=== PATIENT | female | born 1975 | race Caucasian/White ===

== ENCOUNTER 2019-02-03 18:14 | Emergency (ER) | payer SELFPAY ==
[~2019-02-03] VITALS: Ht 172.7 cm; Wt 70.7 kg
[~2019-02-03 18:14] MED LIST: ACET500C5 PO; CEPH-443 PO
[2019-02-03 18:24] VITALS: BP 115/68; PULSE 84; RESP 16; Ht 172.7 cm; Wt 70.7 kg
--- NOTE | 2019-02-03 20:48 | ERD ---
ER Documentation Chief Complaint Chief Complaint VB w/ pelvic pain today, 5 weeks HPI Patient is a 43-year-old female, no past medical history, presents the ER for concerns of vaginal bleeding and pelvic pain which started today. Patient states she is approximately 5 weeks . Her last menstrual period was on December 16, 2018. Patient is G1, P0. Patient has not established care with an [facility]ORAIL OPERATOR yet. Patient states she was at home when she felt pelvic pain and then passed a large amount of "tissue". Patient states "I know I am having a miscarriage." Patient states she felt "tissue" past however she did not want to look at it given that "I do not like seeing blood. Patient states that time the bleeding has slowed down. Patient denies any lightheadedness or dizziness. ROS All systems reviewed and are negative except as per history of present illness. Medications Home Meds Active Scripts Cephalexin* (Keflex*) 500 Mg Capsule, 500 MG PO BID for 7 Days, CAP Prov:KATHRYN MEDRANO PA-C 02/03/19 Acetaminophen* (Tylophen*) 500 Mg Capsule, 1 CAP PO Q6H PRN for PAIN AND OR ELEVATED TEMP, #20 CAP Prov:KATHRYN MEDRANO PA-C 02/03/19 Allergies Allergies: Coded Allergies: No Known Allergy (Unverified , 02/03/19) PMhx/Soc Anesthesia Reaction: No Hx Neurological Disorder: No Hx Respiratory Disorders: No Hx Cardiac Disorders: No Hx Psychiatric Problems: No Hx Miscellaneous Medical Probl: No Hx Alcohol Use: No Hx Substance Use: No Hx Tobacco Use: Yes Smoking Status: Current every day smoker FmHx Family History: No diabetes Physical Exam Vitals Vital Signs Date Temp Pulse Resp B/P (MAP) Pulse Ox O2 O2 Flow FiO2 Time Delivery Rate 02/03/19 97.1 84 16 115/68 99 18:24 (84) Physical Exam GENERAL: Well-developed, well-nourished []. Appears in no acute distress. HEAD: Normocephalic, atraumatic. EYES: Pupils are equally reactive bilaterally. EOMs grossly intact. No conjunctival erythema. ENT: Moist mucous membranes. No uvula deviation. No kissing tonsils. NECK: Supple. No meningismus. Normal range of motion of the neck. LUNG: Clear to auscultation bilaterally. No rhonchi, wheezing, rales or coarse breath sounds. HEART: Regular rate and rhythm. No murmurs, rubs or gallops. ABDOMEN: soft, nondistended. Tender to palpation in the suprapubic region. Positive bowel sounds in all four quadrants. No rebound tenderness, no guarding. (-) McBurney's point tenderness. No CVA tenderness. BACK: No midline tenderness. EXTREMITIES: Equal pulses bilaterally. No peripheral clubbing, cyanosis or edema. No unilateral leg swelling. NEUROLOGIC: Alert and oriented. Moving all four extremities without any difficulty. Normal speech. Steady gait. SKIN: Normal color. Warm and dry. No rashes or lesions. Result Diagram: 02/03/191942 Results 24 hrs Laboratory Tests Test 02/03/19 19:43 02/03/19 20:00 White Blood Count 9.2 10^3/ul Red Blood Count 3.67 10^6/ul Hemoglobin 10.6 g/dl Hematocrit 32.7 % Mean Corpuscular Volume 89.1 fl Mean Corpuscular Hemoglobin 28.9 pg Mean Corpuscular Hemoglobin Concent 32.4 g/dl Red Cell Distribution Width 12.8 % Platelet Count 268 10^3/UL Mean Platelet Volume 9.2 fl Immature Granulocytes % 0.200 % Neutrophils % 64.8 % Lymphocytes % 26.7 % Monocytes % 8.0 % Eosinophils % 0.0 % Basophils % 0.3 % Nucleated Red Blood Cells % 0.0 /100WBC Immature Granulocytes # 0.020 10^3/ul Neutrophils # 6.0 10^3/ul Lymphocytes # 2.5 10^3/ul Monocytes # 0.7 10^3/ul Eosinophils # 0.0 10^3/ul Basophils # 0.0 10^3/ul Nucleated Red Blood Cells # 0.0 10^3/ul Beta HCG, Quantitative 5116.7 mIU/ml Urine Color AZUCENA Urine Clarity CLOUDY Urine pH 6.0 Urine Specific [place] 1.028 Urine Ketones NEGATIVE mg/dL Urine Nitrite NEGATIVE mg/dL Urine Bilirubin NEGATIVE mg/dL Urine Urobilinogen 1+ mg/dL Urine Leukocyte Esterase 1+ Jozef/ul Urine Microscopic RBC > 182 /HPF Urine Microscopic WBC 18 /HPF Urine Squamous Epithelial Cells MODERATE /HPF Urine Mucus FEW /HPF Urine Hemoglobin 3+ mg/dL Urine Glucose NEGATIVE mg/dL Urine Total Protein 1+ mg/dl Procedures/MDM ED COURSE: The patient was stable throughout ED course. I kept the patient and/or family informed of laboratory and diagnostic imaging results throughout the ED course. DIAGNOSTIC IMAGING: Read by radiologist. Patient: RACHEL HERNANDEZ : 1975 Age: 43 Sex: F MR #: [id number] DOS: 02/03/19 1837 Ordering MD: KATHRYN MEDRANO PA-C Location: [facility] Room/Bed: PROCEDURE: US OB. CLINICAL INDICATION: Vaginal bleeding. TECHNIQUE: Transabdominal and transvaginal sonographic evaluation of the pelvis using heaton scale and color Doppler imaging was performed. COMPARISON: None available. FINDINGS: No discrete intrauterine is identified. There is fluid within the lower uterine segment adjacent to vascular, echogenic contents also within the endometrial canal. The endometrium is thickened and heterogeneous measuring 13 mm. Uterus: 7.6 x 4 x 5 cm. Retroflexed. Right ovary: Not identified. Left ovary: Not identified. IMPRESSION: 1. Heterogeneous endometrial contents including fluid and echogenic components demonstrating flow with no discrete intrauterine identified. These findings are nonspecific and correlation with serial beta HCG is well as short interval follow-up ultrasound is recommended. RPTAT: [facility] Physician Sergio Date Time Electronically viewed and signed by Physician Sergio on 02/03/2019 19:57 LP/ CC: KATHRYN MEDRANO PA-C [id number] MEDICAL DECISION MAKING: This is a 43-year-old female, G1, P0, approximately 5 weeks , presents the ER for concerns of pelvic pain and vaginal bleeding which started today. Patient states she passed a large amount of tissue prior to coming to the ER.. Vital signs were reviewed. Patient was afebrile. Patient was hemodynamically stable. Quantitative b-HCG was 5116. Patient's blood type is noted to be A+, no indication for RhoGam. CBC showed no evidence of systemic infection or severe anemia. Patient is currently taking vitamins and was advised to continue taking vitamins. UA did show 1+ leukocyte esterase. Pelvic US showed . Heterogeneous endometrial contents including fluid and echogenic components demonstrating flow with no discrete intrauterine identified. These findings are nonspecific and correlation with serial beta HCG is well as short interval follow-up ultrasound is recommended. At this time, patient's findings are most consistent with spontaneous and UTI. Patient was advised she will need to repeat her beta hCG to assure downtrending. Patient advised return to the ER for any new or worsening symptoms. Low suspicion for ectopic , ruptured ectopic , molar , subchorionic hematoma, incomplete , complete , missed , placental abruption, placental previa, vasa previa, uterine rupture, anembyronic . PRESCRIPTIONS: Tylenol, Keflex DISCHARGE: At this time, patient is stable for discharge and outpatient management. I had a conversation at length with the patient about the concerns of vaginal bleeding during the 1st trimester of . Patient and/or family understands that her vaginal bleeding can be a normal finding or a sign of miscarriage. I have instructed the patient to follow-up with her OBGYN in 1-2 days for further monitoring including a repeat b-HCG level. I have instructed the patient to promptly return to the ER at any time for any new or worsening symptoms including increased pain, nausea, vomiting, continued bleeding, weakness, syncope or fever. The patient and/or family expressed understanding of and agreement with this plan. All questions were answered. Home care instructions were provided. Disclaimer: Inadvertent spelling and grammatical errors are likely due to EHR/dictation software use and do not reflect on the overall quality of patient care. Also, please note that the electronic time recorded on this note does not necessarily reflect the actual time of the patient encounter. Departure Diagnosis: Primary Impression: Spontaneous Additional Impressions: Vaginal bleeding in patient at less than 20 weeks ges... UTI (urinary tract infection) Urinary tract infection type: site unspecified Hematuria presence: with hematuria Qualified Codes: N39.0 - Urinary tract infection, site not specified; R31.9 - Hematuria, unspecified Condition: Fair Patient Instructions: Bleeding During Early Referrals: COMMUNITY CLINICS YOU HAVE RECEIVED A MEDICAL SCREENING EXAM AND THE RESULTS INDICATE THAT YOU DO NOT HAVE A CONDITION THAT REQUIRES URGENT TREATMENT IN THE EMERGENCY DEPARTMENT. FURTHER EVALUATION AND TREATMENT OF YOUR CONDITION CAN WAIT UNTIL YOU ARE SEEN IN YOUR DOCTORS OFFICE WITHIN THE NEXT 1-2 DAYS. IT IS YOUR RESPONSIBILITY TO MAKE AN APPOINTMENT FOR FOLOW-UP CARE. IF YOU HAVE A PRIMARY DOCTOR --you should call your primary doctor and schedule an appointment IF YOU DO NOT HAVE A PRIMARY DOCTOR YOU CAN CALL OUR PHYSICIAN REFERRAL HOTLINE AT IF YOU CAN NOT AFFORD TO SEE A PHYSICIAN YOU CAN CHOSE FROM THE FOLLOWING [facility] [address] [facility]. [facility] [address] [facility]. [facility] [address] [facility] [address] [facility] [address] [facility]. [facility] [address] [facility]. [facility] YOU HAVE RECEIVED A MEDICAL SCREENING EXAM AND THE RESULTS INDICATE THAT YOU DO NOT HAVE A CONDITION THAT REQUIRES URGENT TREATMENT IN THE EMERGENCY DEPARTMENT. FURTHER EVALUATION AND TREATMENT OF YOUR CONDITION CAN WAIT UNTIL YOU ARE SEEN IN YOUR DOCTORS OFFICE WITHIN THE NEXT 1-2 DAYS. IT IS YOUR RESPONSIBILITY TO MAKE AN APPOINTMENT FOR FOLOW-UP CARE. IF YOU HAVE A PRIMARY DOCTOR --you should call your primary doctor and schedule and appointment IF YOU DO NOT HAVE A PRIMARY DOCTOR YOU CAN CALL OUR PHYSICIAN REFERRAL HOTLINE AT . IF YOU CAN NOT AFFORD TO SEE A PHYSICIAN YOU CAN CHOSE FROM THE FOLLOWING [facility]: [facility] [address] [place] [address] [facility] [address] [place] [address] [facility] [address] [place] [address] [facility] [place] [address] [facility] [address] [place] [address] OFFICE FAX DANIEL [address] [address] [address] [facility] [address] [place] [address] [address] MCCOY, [facility] [address], [address] [address] [address] [place], [facility] [address] [facility], [place] [address] [facility] [address] [place] [address] [address] [facility], [facility] [address] - [address] SEGOVIA NASEEM [address], [facility] [address] [address] HORAN, [place] [address] [facility]. [address], [facility] [address] [address] [facility] [facility] [address] [place], [place] [id number] Additional Instructions: Repeat beta-hCG and ultrasound advised in 2 to 3 days. Return sooner for any new or worsening symptoms. Call your primary care doctor/ OBGYN TOMORROW for an appointment during the next 1-2 days.See the doctor sooner or return here if your condition worsens before your appointment time. KATHRYN MEDRANO PA-C Feb 03, 2019 20:48
== END 2019-02-03 20:44 | disposition home or self-care (01) ==
LOC: FTE 18:14
DX: O03.9 Complete or unspecified spontaneous abortion without complication (principal); O23.41 Unspecified infection of urinary tract in pregnancy, first trimester; O99.331 Smoking (tobacco) complicating pregnancy, first trimester; F17.210 Nicotine dependence, cigarettes, uncomplicated; R10.2 Pelvic and perineal pain
CPT/HCPCS: 36415; 76801; 76817; 81001; 84702; 85025; 86900; 86901